=== PATIENT | male | born 1960 | race Caucasian/White ===

== ENCOUNTER 2020-03-31 10:31 | Inpatient (IN) | payer BC ==
[~2020-03-31] VITALS: Ht 177.8 cm; Wt 81.6 kg
[2020-03-31 10:59] VITALS: BP_SYST 133
[2020-03-31] MEDS ORDERED: NACL 0.9% 1,000 ML IV ONE (11:06)
[2020-03-31] MEDS ORDERED: KETOROLAC TROMETHAMINE 30 MG VIAL IVP ONE ×2 (11:15→14:48)
[2020-03-31 11:32] LABS: BASOPHILS % (AUTO) 0.2 % (0.0-2.0); EOSINOPHILS % (AUTO) 0.1 % (0.0-4.0); HEMATOCRIT 47.1 % (36-54); HEMOGLOBIN 16.1 g/dL (14.0-18.0); LYMPHOCYTES % (AUTO) 14.7 % (20.5-51.5); MEAN CORPUSCULAR HEMOGLOBIN 30 pg (27-31); MEAN CORPUSCULAR HGB CONC 34 % (32-36); MEAN CORPUSCULAR VOLUME 87 fL (79.0-98.0); MONOCYTES # (AUTO) 0.7 K/uL (0.0-1.0); NEUTROPHILS # (AUTO) 10.7 K/uL (1.8-7.7); PLATELET COUNT (AUTO) 204 K/uL (130-430); RED BLOOD CELL COUNT(AUTO) 5.42 MIL/uL (4.2-6.2); RED CELL DISTRIBUTION WIDTH 13.3 % (9.0-15.0); WHITE BLOOD COUNT (AUTO) 13.4 K/uL (4.8-10.8)
[2020-03-31 11:45] LABS: CALCIUM 9.1 mg/dL (8.4-11.0); CREATININE 1.03 mg/dL (0.55-1.30); POTASSIUM 3.5 mmol/L (3.5-5.1)
[2020-03-31 11:50] LABS: ALBUMIN 3.7 g/dL (3.4-4.8); TOTAL BILIRUBIN 0.9 mg/dL (0.0-1.0)
[2020-03-31] MEDS ORDERED: DOCUSATE SODIUM 100 MG/10 ML UDC PO PRN (12:45)
[2020-03-31] MEDS ORDERED: ACETAMINOPHEN 500 MG TABLET PO PRN (12:45)
[2020-03-31] MEDS ORDERED: ZOLPIDEM TARTRATE 5 MG TABLET PO PRN (12:45)
[2020-03-31] MEDS ORDERED: ONDANSETRON HCL 4 MG/2 ML VIAL IVP PRN ×2 (12:45→15:30)
[2020-03-31] MEDS ORDERED: MORPHINE 2 MG/ML INJ. SYRINGE IVP PRN (12:45)
[2020-03-31] MEDS ORDERED: HYDROcodone/ACETAMIN 7.5-325 MG TAB PO PRN (12:45)
[2020-03-31] MEDS ORDERED: POTASSIUM CHLORIDE 20 MEQ TAB.PRT.SR PO PRN (13:00)
[2020-03-31] MEDS: D5NS 1,000 ML IV SCH ×2 (13:16→22:53)
[2020-03-31 13:39] LABS: BILIRUBIN,URINE NEGATIVE (NEGATIVE); BLOOD, URINE NEGATIVE (NEGATIVE); CLARITY/URINE CLEAR (CLEAR); COLOR,URINE YELLOW (YELLOW); GLUCOSE,URINE NEGATIVE (NEGATIVE); KETONES,URINE NEGATIVE (NEGATIVE); LEUKOCYTE ESTERASE ,URINE NEGATIVE (NEGATIVE); NITRITE, URINE NEGATIVE (NEGATIVE); PH,URINE 6.5 (5.0-8.0); PROTEIN URINE NEGATIVE (NEGATIVE)
[2020-03-31 13:45] LABS: PROTHROMBIN TIME 10.2 SECS (9.5-12.5)
[2020-03-31 13:59] LABS: FREE T4 (FREE THYROXINE) 0.8 ng/dL (0.6-1.6); PHOSPHORUS 3.8 mg/dL (2.7-4.5); THYROID STIMULATING HORMONE 2.99 uIu/mL (0.34-4.82)
[2020-03-31 14:01] LABS: BARBITURATE, URINE NEGATIVE (NEG <=200); BENZODIAZEPINE, URINE NEGATIVE (NEG <=150); CANNABINOID, URINE NEGATIVE (NEG <=50); COCAINE, URINE NEGATIVE (NEG <=150); METHAMPHETAMINES SCREEN,URINE NEGATIVE (NEG <=500); OPIATE, URINE NEGATIVE (NEG <=100); PHENCYCLIDINE SCREEN,URINE NEGATIVE (NEG <=25); UR TRICYCLIC ANTIDEPRESSANTS NEGATIVE (NEG <=300); URINE AMPHETAMINE NEGATIVE (NEG <=500); URINE METHADONE NEGATIVE (NEG <=200); URINE OXYCODONE SCREEN NEGATIVE (NEG <=100); URINE PROPOXYPHENE SCREEN NEGATIVE (NEG <=300)
[2020-03-31] MEDS ORDERED: ROCURONIUM BROMIDE 10 MG/ML (ZEMURON) IV ONE (14:48)
[2020-03-31] MEDS ORDERED: BUPIVACAINE /EPINEPHRINE/PF 0.25% 30 ML VIAL INJ ONE (14:48)
[2020-03-31] MEDS ORDERED: NS IRRIG SOLN 5000 ML IR ONE (14:48)
[2020-03-31] MEDS ORDERED: SEVOFLURANE 15 MIN GAS INH ONE (14:48)
[2020-03-31] MEDS ORDERED: GLYCOPYRROLATE 0.2 MG/ML VIAL IJ ONE (14:48)
[2020-03-31] MEDS ORDERED: D5NS 1,000 ML IV.SOLN IV ONE (14:48)
[2020-03-31] MEDS ORDERED: NEOSTIGMINE METHYLSULFATE 1 MG/ML, 10 ML VIAL IVP ONE (14:48)
[2020-03-31] MEDS ORDERED: cefOXitin SODIUM 2 GM/VIAL (MEFOXIN) IV ONE (14:48)
[2020-03-31] MEDS ORDERED: LR 1,000 ML IV SCH (15:29)
[2020-03-31] MEDS ORDERED: HYDROmorphone 1 MG INJ. 1 MG/ML AMPUL IVP PRN (15:30)
[2020-03-31] MEDS ORDERED: KETOROLAC TROMETHAMINE 30 MG VIAL IVP PRN (15:30)
[2020-03-31] MEDS ORDERED: MORPHINE 4 MG/ML INJ. SYRINGE IVP PRN (15:30)
[2020-03-31] MEDS: metroNIDAZOLE 500 mg/NS 100 ML IV SCH ×2 (15:36→21:12)
[2020-03-31 16:52] VITALS: BP_SYST 128
[2020-03-31] MEDS ORDERED: HYDROmorphone 1 MG INJ. 1 MG/ML AMPUL ONE (16:57)
[2020-03-31 18:55] VITALS: BP_SYST 135
[2020-03-31] MEDS: PIPERACILLIN/TAZO 3.375/DEX-IS 50 ML IV SCH (19:54)
[2020-03-31 20:00] VITALS: BP_SYST 122
[2020-04-01] MEDS: PIPERACILLIN/TAZO 3.375/DEX-IS 50 ML IV SCH ×3 (00:38→13:09)
[2020-04-01 01:18] VITALS: BP_SYST 111
[2020-04-01] MEDS: metroNIDAZOLE 500 mg/NS 100 ML IV SCH ×3 (03:18→15:19)
[2020-04-01 06:49] LABS: BASOPHILS % (AUTO) 0.1 % (0.0-2.0); EOSINOPHILS % (AUTO) 0.1 % (0.0-4.0); HEMATOCRIT 42.1 % (36-54); HEMOGLOBIN 14.4 g/dL (14.0-18.0); LYMPHOCYTES % (AUTO) 10.5 % (20.5-51.5); MEAN CORPUSCULAR HEMOGLOBIN 30 pg (27-31); MEAN CORPUSCULAR HGB CONC 34 % (32-36); MEAN CORPUSCULAR VOLUME 88 fL (79.0-98.0); MONOCYTES # (AUTO) 0.4 K/uL (0.0-1.0); MONOCYTES % (AUTO) 3.7 % (1.7-9.3); NEUTROPHILS # (AUTO) 8.3 K/uL (1.8-7.7); NEUTROPHILS % (AUTO) 85.6 % (40.0-70.0); PLATELET COUNT (AUTO) 173 K/uL (130-430); RED BLOOD CELL COUNT(AUTO) 4.77 MIL/uL (4.2-6.2); RED CELL DISTRIBUTION WIDTH 13.3 % (9.0-15.0); WHITE BLOOD COUNT (AUTO) 9.7 K/uL (4.8-10.8)
[2020-04-01 06:50] LABS: CALCIUM 8.3 mg/dL (8.4-11.0); CREATININE 1.26 mg/dL (0.55-1.30); POTASSIUM 3.7 mmol/L (3.5-5.1)
[2020-04-01] MEDS: D5NS 1,000 ML IV SCH (08:44)
[2020-04-01] MEDS ORDERED: PANTOPRAZOLE SODIUM 40 MG TAB PO SCH (09:00)
[2020-04-01 12:06] VITALS: BP_SYST 121
[2020-04-01] MEDS ORDERED: HYDR-4272 PO (12:14)
[2020-04-01 15:21] VITALS: BP_SYST 121
== END 2020-04-01 16:45 | disposition home or self-care (01) | DRG 340 ==
LOC: SED 10:31 → SMU 12:27
PROVIDERS: ADMIT Family Medicine; ATTEND Family Medicine
PROC: 0DTJ4ZZ Resection of Appendix, Percutaneous Endoscopic Approach (ICD-10-PCS; principal; 2020-03-31 14:30)
DX: K35.32 Acute appendicitis with perforation, localized peritonitis, and gangrene, without abscess (principal); Z82.49 Family history of ischemic heart disease and other diseases of the circulatory system; Z83.3 Family history of diabetes mellitus; Z03.818 Encounter for observation for suspected exposure to other biological agents ruled out
CPT/HCPCS: 36415; 71045; 80048; 80053; 80061; 80307; 81003; 82150-TC; 83036; 83605; 83690-TC; 83735-TC; 83880; 84100-TC; 84439; 84443-TC; 84484; 85025; 85610-TC; 85730-TC; 86886; 86900; 86901; 87040-TC; 87086; 88304; 96361; 96374; 99285; C1727; J0694; J1170; J1885; J2543; J2710; J3490; J7030; J7042; U0003-CS